=== PATIENT | female | born 2000 | race Two or more races ===

== ENCOUNTER 2021-12-11 14:05 | Emergency (ER) | payer OTHER ==
[~2021-12-11] VITALS: Ht 170.2 cm; Wt 62.0 kg
[2021-12-11 14:07] VITALS: BP 120/71
[2021-12-11] MEDS ORDERED: KETOROLAC TROMETH 60MG/2ML VIAL IM ONE (14:30)
[2021-12-11] MEDS ORDERED: IBUP600T27 PO (14:49)
== END 2021-12-11 17:30 | disposition home or self-care (01) ==
LOC: ER 14:05
DX: R07.89 Other chest pain (principal); Z90.49 Acquired absence of other specified parts of digestive tract
CPT/HCPCS: 71045; 93005; 96372; 99283; J1885; J7040

== ENCOUNTER 2022-03-03 16:58 | Emergency (ER) | payer OTHER ==
[~2022-03-03] VITALS: Ht 170.2 cm; Wt 61.0 kg
[~2022-03-03 16:58] MED LIST: IBUP600T27 PO
[2022-03-03 17:52] VITALS: BP 131/72
== END 2022-03-03 18:18 | disposition home or self-care (01) ==
LOC: ER 16:58
DX: S93.601A Unspecified sprain of right foot, initial encounter (principal); F12.10 Cannabis abuse, uncomplicated; Z90.49 Acquired absence of other specified parts of digestive tract; X58.XXXA Exposure to other specified factors, initial encounter; Y93.39 Activity, other involving climbing, rappelling and jumping off; Y92.89 Other specified places as the place of occurrence of the external cause; Y99.8 Other external cause status
CPT/HCPCS: 73630

== ENCOUNTER 2024-06-23 11:13 | Emergency (ER) | payer OTHER ==
[~2024-06-23] VITALS: Ht 170.2 cm; Wt 85.4 kg
[~2024-06-23 11:13] MED LIST changes: +ALBU108A5 IN; +BENZ200C64 PO; +CEPH500C PO; +CYCL-837 PO; +IBUP-1454 PO; +IBUP-1456 PO; -IBUP600T27 PO; +PRED20TA2 PO
--- NOTE | 2024-06-23 11:49 | DVH ---
EXAM: XY R ANKLE 3 VIEW CLINICAL INDICATION: PAIN SWELLING TECHNIQUE: XY R ANKLE 3 VIEW Comparison: None FINDINGS/IMPRESSION: There is no evidence of acute fracture or dislocation. The visualized joint space is well maintained. The alignment is anatomical. There is no radiopaque foreign body.
--- NOTE | 2024-06-23 12:41 | ED.PDOC ---
Musculoskeletal HPI Comments HPI: Poor Historian. 24 y.o female presents to the ED for a chief complaint of right ankle pain x 1 day. Patient reports she went hiking, rolled ankle over a rock and proceeded to walk 2 miles bearing full weight on ankle. Patient today presents with swelling and constant pain. Patient is able to still bear weight on the ankle and there appears to be no lacerations, abrasions or bruising. Patient reports taking Ibuprofen and Tylenol for pain with no relief. Vitals BP: 121/93 HR: 100 Temp: 97.6 F SPO2: 97 % RA RR: 17 Past medical history: Bronchitis x2 and previous right ankle sprain Past surgical history: cholecystectomy No allergies reported REVIEW OF SYSTEMS: CONSTITUTIONAL: Denies acute: fever, diaphoresis, chills, generalized weakness. HEAD: Denies acute: headache, photophobia Eyes: Denies acute: Double vision, vision loss, eye pain, eye discharge. EARS: Denies acute: tinnitus, hearing loss, ear discharge, ear pain, THROAT: Denies acute: sore throat, swelling, difficulty swallowing , pain with swallowing, change in voice. NECK: Denies acute: neck pain, neck swelling, stiff neck. HEART: Denies acute : chest pain, palpitations, LUNGS: Denies acute: SOB, wheezing, cough, hemoptysis ABDOMEN: Denies acute: abdominal pain, Nausea, Vomiting, diarrhea, melena , hematemesis, hematochezia SKIN: Denies acute: rash, redness, lesions, itchiness. EXTREMITIES: Denies acute: calf pain, numbness, tingling, weakness, Denies acute: Low back pain. Neuro: Denies acute: focal neurological deficit, motor or sensory focal neurological deficit, tremors, seizure like activity, confusion, dizziness, change in mental status, loss of bowel or bladder function, cauda equina like symptoms. : Denies acute: dysuria, hematuria, flank pain, increase in urinary frequency. PSYCH: Denies acute: hallucination, suicidal ideation, homicidal ideation. FEMALE: Denies acute: abnormal vaginal bleeding, foul odor, unusual discharge. PHYSICAL EXAM: General: no acute distress, awake and alert. Head: normocephalic, atraumatic. Neck: supple, trachea is midline, no swelling. Throat: Normal phonation. Eyes:, no erythema, no purulent discharge, no proptosis, no icterus. Heart: regular rate, regular rhythm, no significant murmur appreciated. Lungs: no apparent respiratory distress, Able to speak in full sentences. No wheezing, no rhonchi, no crackles. No stridors Clear to auscultation bilaterally. Abdomen: non tender to palpation, non distended, soft, no guarding, no rebound, + bowel sounds. Neuro: Awake, Alert, oriented to name, self, situation, follows commands GCS=15. Speech is normal. Skin: no petechia, no purpura, no cyanosis, non-pale, not jaundice. Lower extremities: --no - Pitting edema no deformity, no calf TTP. Evaluation of the right ankle where her area of complaint is: Right lateral malleoli swelling and mild redness and tenderness to palpation. Patient is neurovascularly intact in the affected extremity. Motor and sensory are present. Makes eye contact. moves all four extremities. Face: no apparent facial droop. Ambulating in the ED independently. Pedal pulses are palpable. ED COURSE: Chief Complaint: Lower Extremity Time Seen by MD: 11:25 Primary Care Provider: leah Reviewed Notes: Nurses Notes, Allergies Allergies: Coded Allergies: NO KNOWN ALLERGIES (Unverified , 03/03/22) Home Meds Active Scripts Albuterol Sulfate (Albuterol Sulfate Hfa) 108 Mcg/Act Aer, 1 PUFF IN Q4HPRN PRN, #1 INH As needed for cough shortness of breath wheezing Prov:JP TEJADA DRILLING MACHINE RUNNER 06/24/23 Benzonatate (Benzonatate) 200 Mg Cap, 1 CAP PO TID, #30 CAP as needed for cough Prov:JP TEJADA DRILLING MACHINE RUNNER 06/24/23 Prednisone (Prednisone) 20 Mg Tab, 1 TAB PO BID for 5 Days, #10 TAB Start tomorrow with food Prov:JP TEJADA DRILLING MACHINE RUNNER 06/24/23 Cephalexin Monohydrate (Cephalexin) 500 Mg Cap, 1 CAP PO TID for 10 Days, #30 CAP Prov:JP TEJADA DRILLING MACHINE RUNNER 06/24/23 Cyclobenzaprine Hcl (Cyclobenzaprine Hcl) 5 Mg Tab, 1 TAB PO QPM PRN, #14 TAB 0 Refills Prov:CATHY MENDOZA 06/20/22 Ibuprofen (Ibuprofen) 800 Mg Tab, 1 TAB PO TID PRN, #30 TAB 0 Refills Prov:CATHY MENDOZA EDMUNDO 06/20/22 Ibuprofen (Ibuprofen) 600 Mg Tab, 1 TAB PO TID, #15 TAB Prov:EUGENE PATINO MD 12/11/21 Information Source: Patient Mode of Arrival: Ambulatory Past Medical History Past Medical History (Other): brocnhitis x2 previous right ankle sprain Surgical History: Cholecystectomy [employer] History: Denies all [employer] Hx Family History Family History: Reviewed,noncontributory to illness Social History Smoker: Non-Smoker Alcohol: Denies ETOH Use Drugs: Marijuana Lives In: Home Was a procedure done? Was a procedure done?: No Differential Diagnosis EXT Differential Diagnosis: Cellulitis, Deep Vein Thrombosis, Compartment Syndrome, Fracture, Sprain, Dislocation, DJD, Contusion, Strain, Septic, Neurovascular injury, Arthritis, Bursitis X-Ray, Labs, Meds, VS Vital Signs Date Time Temp Pulse Resp B/P (MAP) Pulse Ox O2 Delivery O2 Flow Rate FiO2 06/23/24 11:25 97.6 100 17 121/93 (102) 97 Time of 1ST Reevaluation: 12:43 Reevaluation 1ST: Unchanged Patient Education/Counseling: Diagnosis, Treatment Family Education/Counseling: No Family Present Comments Patient presented with the above HPI.--right ankle pain----workup was initiated. patient was found with the above mentioned diagnosis. the following medications were ordered: please refer to order lists of meds and tests obtained by myself Dr. Conner. Patient ED course and VS have been stabilized. Patient has been reassessed in the ED and remained in a stable condition. Pertinent incidental findings were discussed with the patient and/or family. Patient/family voices understanding and is agreeable with plan. Patient has been observed in the ED adequate length of time to insure improvement/stability. Escalation of care considered: Consideration of escalation to observation or admission The strap was applied to the affected ankle. Patient was DISCHARGED home in a stable condition. All the reports of any imaging studies that were ordered by myself were reviewed by myself. Departure 1 Departure Time of Disposition: 14:02 Impression: Primary Impression: Right ankle sprain Disposition: HOME / SELF CARE / HOMELESS Condition: Stable Additional Instructions: Additional discharge instructions: You MUST follow-up with your primary care/family doctor in 1 to 2 days. If you are unable to see your primary care/family doctor, please return to our emergency room for re-assessment and re-evaluation in 1 to 2 days. Return to the emergency room here in our facility or to the nearest ER [facility] if y our symptoms change or worsen. CONSULTATIONS: you MUST Follow-up for consultation as soon as possible with: orthopedic doctor in 1-2 days. Please call for appointment. You MUST call the consultants office yourself to make an appointment. You may n eed to arrange that through your insurance and/or your primary/family doctor. If you are unable to see the senior sustainability consultant in 1 to 2 days, you must return to our emergency room (or any other ER of your choice) for re-assessment and re- evaluation. Adequate fluid hydration. Leg elevation. Continue taking Tylenol ibuprofen with food as instructed for pain control. Apply ice as needed for inflammation. Below is a copy of your radiological report for follow up: [place] [id number] Ph: [phone] DIAGNOSTIC IMAGING Diagnostic Imaging Report : [id number] Signed PATIENT: ARDEN LIM ACCT: [id number] UNIT: [id number] : 2000 LOC: ER ROOM / BED: / AGE / SEX: 24 / F ADM STATUS: REG ER SERVICE 1124 ORDERING PHYSICIAN: EILEEN CONNER DO PROCEDURE(s): RANKL - R ANKLE 3 VIEW REASON: PAIN SWELLING ORDER NUMBER(s): [id number], ACCESSION NUMBER(s): [id number] EXAM: XY R ANKLE 3 VIEW CLINICAL INDICATION: PAIN SWELLING TECHNIQUE: XY R ANKLE 3 VIEW Comparison: None FINDINGS/IMPRESSION: There is no evidence of acute fracture or dislocation. The visualized joint space is well maintained. The alignment is anatomical. There is no radiopaque foreign body. ATED BY: LORENZO ABRAMS MD DICTATED DATE/TIME: 06/23/24 1147 SIGNED BY: LORENZO ABRAMS MD SIGNED DATE/TIME: 06/23/24 1147 CC: Discharged With: Self Critical Care Note Critical Care Time?: No I personally scribed for EILEEN CONNER DO ([email or web address]) on 06/23/24 at 12:41. Electronically submitted by Diana Parkinson ([facility]). I personally scribed for EILEEN CONNER DO ([email or web address]) on 06/23/24 at 12:48. Electronically submitted by Diana Parkinson ([facility]). EILEEN CONNER DO Jun 23, 2024 12:41
[2024-06-23 14:46] VITALS: BP 120/86; PULSE 98; RESP 16; TEMP 98.2; O2SAT 99
== END 2024-06-23 14:49 | disposition home or self-care (01) ==
LOC: ER 11:13
DX: S93.491A Sprain of other ligament of right ankle, initial encounter (principal); Z90.49 Acquired absence of other specified parts of digestive tract; Z98.890 Other specified postprocedural states; X58.XXXA Exposure to other specified factors, initial encounter; Y93.01 Activity, walking, marching and hiking; Y92.89 Other specified places as the place of occurrence of the external cause; Y99.8 Other external cause status
CPT/HCPCS: 73610

== ENCOUNTER 2025-04-23 00:31 | Emergency (ER) | payer OTHER ==
[~2025-04-23] VITALS: Ht 160 cm; Wt 86.2 kg
[2025-04-23] MEDS ORDERED: SODIUM CHLORIDE 0.9% 1,000 ML IV ONE (01:00)
[2025-04-23] MEDS ORDERED: ONDANSETRON HCL 4 MG/2 ML VIAL IV ONE (01:00)
[2025-04-23 01:25] VITALS: BP 112/73; PULSE 81; RESP 16; TEMP 98.1; O2SAT 100
--- NOTE | 2025-04-23 01:59 | DVH ---
CHEST RADIOGRAPH INDICATION: n/v/d TECHNIQUE: Single frontal view of the chest was obtained COMPARISON: XY CHEST TWO VIEWS ROUTINE on DOS: 06/23/23, CHEST PORTABLE on DOS: 12/11/21 FINDINGS: Lungs and pleural spaces are clear. Cardiac silhouette and roya are within normal limits. Bones and soft tissues demonstrate no significant abnormality. IMPRESSION: No acute disease.
[2025-04-23 02:02] LABS: Hematocrit 39.5 % (36.0-46.0); Hemoglobin 13.2 g/dL (12.2-16.2); Mean Corpuscular Hemoglobin 30.4 pg (28.0-32.0); Mean Corpuscular Volume 90.6 fL (80.0-100.0); Nucleated Red Blood Cells % 0.0 %
[2025-04-23 02:28] LABS: Albumin 4.0 g/dL (3.2-4.8); Alkaline Phosphatase 75 U/L (46-116); Anion Gap 12 (5-15); Calcium 8.7 mg/dL (8.7-10.4); Carbon Dioxide 23 mmol/L (20-31); Glucose 104 mg/dL (74-106); Magnesium 2.1 mg/dL (1.6-2.6); Potassium 3.8 mmol/L (3.5-5.1); Total Protein 7.1 g/dL (5.7-8.2)
[2025-04-23 02:34] LABS: Alanine Aminotransferase 106 U/L (7-40); BUN/Creatinine Ratio 8.3 (10.0-20.0); Bilirubin, Total 0.2 mg/dL (0.2-1.0); Blood Urea Nitrogen < 5 mg/dL (9-23); Chloride 111 mmol/L (98-107); Sodium 146 mmol/L (136-145)
== END 2025-04-23 01:39 | disposition left against medical advice (07) ==
LOC: EDBD 00:31 → ER 00:31
DX: R11.2 Nausea with vomiting, unspecified (principal); Z53.21 Procedure and treatment not carried out due to patient leaving prior to being seen by health care provider
CPT/HCPCS: 36415; 71045; 80053; 83605; 83735; 84484; 85025